=== PATIENT | female | born 1995 | race Caucasian/White ===

== ENCOUNTER → 2020-03-10 | Day surgery (SDC) | payer OTHER ==
--- NOTE | 2020-03-09 22:13 | Pre-Procedure Note/Attestation ---
Pre-Procedure Note/Attestation Complete Prior to Procedure Planned Procedure: bilateral Procedure Narrative: 1. ORIF nasal fracture 2. Septoplasty 3. Submucous resection bilateral inferior turbinates Indications for Procedure Pre-Operative Diagnosis: 1. Nasal deformity secondary to fracture 2. Nasal septal deviation 3. Hypertrophied bilateral inferior turbinates Attestation I attest that I discussed the nature of the procedure; its benefits; risks and complications; and alternatives (and the risks and benefits of such alternatives ), prior to the procedure, with the patient (or the patient's legal security representative). I attest that, if there was a reasonable possibility of needing a blood transfusion, the patient (or the patient's legal security representative) was given the [facility] standardized written summary, pursuant to the Todd Silva Blood Safety Act ([place] Health and Safety Code # 1645, as amended). I attest that I re-evaluated the patient just prior to the surgery and that there has been no change in the patient's H&P. Labs not indicated in otherwise healthy 24 yo female under 45 years old. Samuel Vega MD Mar 09, 2020 22:13
--- NOTE | 2020-03-09 22:16 | Brief Operative Note ---
Immediate Post Operative Note Operative Note Chief Complaint: nasal fareed=formityand difficulty breathing via nose Pre-op Diagnosis: 1. Nasal deformity secondary to fracture 2. Nasal septal deviation 3. Hypertrophied bilateral inferior turbinates Procedure: 1. ORIF nasal fracture 2. Septoplasty 3. Submucous resection bilateral inferior turbinates Post-op Diagnosis: same as pre-op Surgeon: Samuel Vega [employer] Supervisor: none Additional Surgeons: none Anesthesiologist: Chikis Anesthesia: general Specimen: none Complications: none Condition: stable Fluids: D5LR Estimated Blood Loss: volume - 150 cc Drains: none Packing: SinoNasal gel Implant(s) used?: No Samuel Vega MD Mar 09, 2020 22:16
--- NOTE | 2020-03-09 22:20 | Discharge Instructions ---
Discharge Instructions Discharge Instructions Follow up with: 1 week [address] surgery in Dr[address] Vega's office-pt has appt already Diet: regular Resume Normal Activity?: No Activity: light activity Pneumonia Vaccine: pt refused vaccine Influenza Vaccine (Apr to Sep): pt refused vaccine Follow Up Orders Pt has printed instructions for post op care that I reviewed and gave to both her and her Mother during her pre op visit last week. Return to Work/School on: Mar 24, 2020 Special Instructions ice to face x 48 hours For Surgical Patients Dressing Care: may change May shower: No For Congestive Heart Failure Reminder Report to your physician any weight gain of 5 pounds or more in one week. Samuel Vega MD Mar 09, 2020 22:20
--- NOTE | 2020-03-09 22:26 | History & Physical ---
History of Present Illness General Date patient seen: Mar 06, 2020 Time patient seen: 11:00 Reason for Hospitalization: outpt surgery for nose Present Illness HPI Nasal trauma with deformity and septal deviation Allergies: Coded Allergies: No Known Allergies (Unverified , 03/09/20) COVID-19 Screening Contact w/high risk pt: No Recent Travel to affected area: No Experienced COVID-19 symptoms?: No Medication History Scheduled Amoxicillin* (Amoxil*), 500 MG ORAL EVERY 8 HOURS Scheduled PRN Hydrocodone Bit/Acetaminophen 5-325* ([place] 5-325 Tablet*), 1 TAB ORAL Q6H PRN Patient History History Provided By: Patient Healthcare decision maker Resuscitation status Advanced Directive on File Review of Systems Review of Symptoms General ROS: no weight loss or fever Psychological ROS: no depression or mood changes, no memory loss Ophthalmic ROS: no visual changes or eye irritation ENT ROS: + nasal congestion and deformity, -hearing loss, dizziness Allergy and Immunology ROS: no allergic symptoms or urticaria Hematological and Lymphatic ROS: no swollen glands, unusual bleeding or bruising Endocrine ROS: no polyuria, polydipsia, weight changes, temperature intolerance Respiratory ROS: no cough, shortness of breath, or wheezing Cardiovascular ROS: no chest pain or dyspnea on exertion Gastrointestinal ROS: denies abdominal pain, bright red blood in stool. Musculoskeletal ROS: no myalgias or arthralgias Neurological ROS: no TIA or stroke symptoms Dermatological ROS: no new or changing skin lesions, rashes or pruritis Physical Exam Physical Exam General appearance: alert, cooperative, no distress, appears stated age Head: Normocephalic, without obvious abnormality, atraumatic Eyes: conjunctivae/corneas clear. PERRL, EOM's intact. Fundi benign Throat: Lips, mucosa, and tongue normal. Teeth and gums normal Neck: supple, symmetrical, trachea midline, no adenopathy, thyroid: not enlarged, symmetric, no tenderness/mass/nodules, no carotid bruit and no JVD Lungs: clear to auscultation bilaterally Heart: regular rate and rhythm, S1, S2 normal, no murmur, click, rub or gallop Abdomen: soft, non-tender. Bowel sounds normal. No masses, no organomegaly Extremities: extremities normal, atraumatic, no cyanosis or edema Pulses: 2+ and symmetric Skin: Skin color, texture, turgor normal. No rashes or lesions Neurologic: Grossly normal Nose: NASAL DEFORMITY, SEPTAL DEVIATION, HYPERTROPHIED INFERIOR TURBINATES. bp 120/80 hr 70 NONE INDICATED in healthy 24 year old female Height (Feet): 5 Height (Inches): 2 Weight (Pounds): 120 Medications Current Medications Medications (Trade) Dose Ordered Sig/Karissa Route PRN Reason Start Time Stop Time Status Last Admin Dose Admin Cefazolin Sodium 1 gm/Dextrose 55 ml @ 110 mls/hr ONCE ONCE IV 03/10/20 07:15 03/10/20 07:44 Dexamethasone Sodium Phosphate (Decadron 4mg/ml vial) 8 mg ONCE ONCE IVP 03/10/20 07:30 03/10/20 07:31 Objective Narrative Repair nasal deformity and improve nasal breathing Assessment/Plan Status: stable Assessment/Plan: 1. ORIF nasal fracture 2. Septoplasty 3. Submucous resection bilateral inferior turbinates MIPS Hospital declaration Disposition: Once the patient is stable to leave the hospital, I anticipate the patient will likely be discharged to the following environment:Home Estimated discharge date: 03/10/2020 I spent 70 minutes on this patient's case, and 25 minutes was dedicated to counseling and/or care coordination. MIPS ([employer]-based Incentive Payment System) Applicable CPT: 08653, 74454 CHECK ALL THAT ARE MET: Measure #130 The provider has documented, updated, or reviewed the patients current medication list and has documented it in the patients note. MEDICAL COMPLEXITY High complexity medical decision making (need 2/3 categories) Problem - need 4 points Acute/new problem with new plan for workup (4 points, 1 max) Acute/new problem without additional workup (3 points, 1 max) Unstable chronic problem actively being managed (2 point each, 2 max) Stable chronic problem actively being managed (1 point each, 2 max) Self-limited/transient process (constipation, muscle ache, etc) (1 point each , 2 max) Data - need 4 points Reviewed labs/imaging studies (1 points, 2 max) Independent review of imaging (EKG, xrays, etc) (2 points, 2 max) Discussed case with consult/other MD/RN (2 points, 2 max) High Risk - qualify if have one of the following: Severe exacerbation of acute problem, acute mental status change, IV narcotics , monitoring drug levels (vancomycin, INR, tacrolimus etc) Samuel Vega MD Mar 09, 2020 22:26
[2020-03-10] VITALS (13 sets, daily range): BP systolic 110–136; BP diastolic 63–82
[~2020-03-10] VITALS: Ht 160 cm; Wt 52.2 kg
[~2020-03-10] MED LIST: AMOXICILLIN500 MG ORAL; Acetaminophen (Non formulary) 100 ML IV ONE; Atropine Sulfate 0.4mg/ml inj IVP PRN; Bupivacaine w/Epi 0.5% 30ml Vial INJ ONE; Cocaine HCl 4% 4ml vial TOPIC ONE; DiphenhydrAMINE 50mg/ml Inj IVP PRN; HYDROcodone/Acetamin 5/325 tab ORAL PRN; HYDROcodone/Acetamin 7.5/325 tab ORAL PRN; HYDROmorphone 1mg/ml Carpuject SUBQ PRN; Hydromorphone 0.5mg/0.5ml inj IVP PRN; KLONOPIN1 MG ORAL; Ketorolac 30mg Inj IV PRN; LORazepam Inj 2mg/ml 1ml IV PRN; LR 1000ml 1,000 ML IVLG SCH; LR 1000ml ONE; Labetalol 5mg/ml 20ml vial IV PRN; Lidocaine 1% 10mg/ml/Epi 0.005mg/ml 30ml vial INJ ONE; Lidocaine 1% MPF 10mg/ml 5ml ONE; Lidocaine 1% Plain 30 ml INJ ONE; Meperidine 25mg/0.5ml Inj (FOR RIGORS ONLY) IV PRN; Metoclopramide 10mg/2ml Inj IVP PRN; Midazolam 2mg/2ml Inj IVP PRN; Midazolam 2mg/2ml Inj ONE; NORCO 5-325 TA1 EAC1 ORAL; NS Irrig 1000ml ONE; PAROXETINE HCL20 MG PO; Sodium Chloride 10ml vial INJ ONE; Sterile Water Irrig 1000ml IRRIG ONE; ceFAZolin sod 1 GM in D5W 55 ML IV ONE; fentaNYL 100 mcg/2 mL IV ONE; fentaNYL 100 mcg/2 mL IV PRN; oxyCODONE HCL/Acetaminophen 5/325mg ORAL PRN; propofoL 1,000mg/100ml IV ONE
--- NOTE | 2020-03-10 08:09 | Anethesia Preoperative Eval ---
Anesthesia Pre-op PMH/ROS General Date of Evaluation: Mar 10, 2020 Time of Evaluation: 09:15 Anesthesiologist: Chikis ASA Score: ASA 1 Mallampati Score Class I : Soft palate, uvula, fauces, pillars visible Class II: Soft palate, uvula, fauces visible Class III: Soft palate, base of uvula visible Class IV: Only hard plate visible Mallampati Classification: Class I Surgeon: Gary Diagnosis: Deviated Septum Surgical Procedure: Septoplasty, SMR Turbinates Family History: no anesthesia problems Allergies: Coded Allergies: No Known Allergies (Unverified , 03/09/20) Medications: see eMAR Patient NPO?: Yes Past Medical History Neurologic/Psychiatric: Reports: depression/anxiety Anesthesia Pre-op Phys. Exam Physician Exam vital Vital Signs Date Time Temp Pulse Resp B/P (MAP) Pulse Ox O2 Delivery O2 Flow Rate FiO2 03/10/20 08:24 96.8 62 18 113/73 100 Room Air Constitutional: NAD Neurologic: CN 2-12 intact Cardiovascular: RRR Respiratory: CTA Gastrointestinal: S/NT/ND Airway Exam Mallampati Score: Class I MO: full ROM: full Teeth: intact Anesthesia Pre-op A/P Risk Assessment & Plan Assessment: ASA 1 Plan: TIVA, SED Status Change Before Surgery: No Pre-Antibiotics Dru Gram Ancef IV Given Within 1 Hr of Incision: Yes Time Given: 09:36 Ramses Diop MD Mar 10, 2020 08:09
--- NOTE | 2020-03-10 10:01 | Immediate Post-Op Evaluation ---
Immediate Post-Op Evalulation Immediate Post-Op Evalulation Procedure: Septoplasty, SMR Turbinates Date of Evaluation: Mar 10, 2020 Time of Evaluation: 11:32 IV Fluids: 500 LR Blood Products: 0 Estimated Blood Loss: 150 Urinary Output: 0 Blood Pressure Systolic: 136 Blood Pressure Diastolic: 82 Pulse Rate: 112 Respiratory Rate: 16 O2 Sat by Pulse Oximetry: 100 Temperature (Fahrenheit): 99.9 Pain Score (1-10): 2 Nausea: No Vomiting: No Complications 0 Patient Status: awake, reacts, patent, none Hydration Status: adequate Dru Gram Ancef IV Given Within 1 Hr of Incision: Yes Time Given: 09:36 Ramses Diop MD Mar 10, 2020 10:01
--- NOTE | 2020-03-10 10:02 | 48 Hour Post Anesthesia Eval ---
Post Anesthesia Evaluation Procedure: Septoplasty, SMR Turbinates Date of Evaluation: Mar 10, 2020 Time of Evaluation: 13:43 Blood Pressure Systolic: 116 0: 73 Pulse Rate: 87 Respiratory Rate: 18 Temperature (Fahrenheit): 98.6 O2 Sat by Pulse Oximetry: 100 Airway: patent Nausea: No Vomiting: No Pain Intensity: 2 Hydration Status: adequate Cardiopulmonary Status: Stable Mental Status/LOC: patient returned to baseline Follow-up Care/Observations: 0 Post-Anesthesia Complications: 0 Follow-up care needed: ready to discharge Ramses Diop MD Mar 10, 2020 10:02
--- NOTE | 2020-03-11 07:44 | Operative Note - Dictated ---
DATE OF OPERATION: 03/10/2020 SURGEON: Samuel Vega MD GROUP TESTER: None. ANESTHESIOLOGIST: Ramses Diop MD. ANESTHESIA: LMA general anesthesia, 4 mL of 4% topical cocaine and 15 mL of 1% lidocaine 1:100,000 epinephrine. INDICATION FOR SURGERY: Patient has had nasal fractures in the past, septal deviation, hypertrophied inferior turbinates. PREOPERATIVE DIAGNOSES: Patient has had nasal fractures in the past, septal deviation, hypertrophied inferior turbinates. POSTOPERATIVE DIAGNOSES: Patient has had nasal fractures in the past, septal deviation, hypertrophied inferior turbinates. FINDINGS: She had a dense scar tissue to the point that it was difficult to undermine over the anterior of her nose and actually got a little tear on the upper left side that was repaired. There was extensive scar tissue in the nasal bone again making it very difficult to elevate periosteum or even separate a plane, which limited some of what could be done. The same was true of her septum. PROCEDURES: 1. Open reduction and internal fixation of nasal fracture. 2. Septoplasty. 3. Submucous resection of the right inferior turbinate. 4. Submucous resection of the left inferior turbinate. TECHNIQUE: Patient was prepped and draped in usual manner via LMA general anesthesia. Time-out was performed. All agreed as the equipment and procedures to be done. She received her antibiotic and steroid. Next, I made an incision in the inferior anterior aspect of either inferior turbinate. Passed a radiofrequency wand, setting of 6, 10 seconds after coating with saline gel x2 in either inferior turbinate and outfractured with the Boies elevator. I then proceeded to address the septal deviation, which was mainly to the left of the vomer. I was able to elevate the flap and remove the vomer. There was extensive deviation on the septum, which I cut out and then I removed most it, lifted over held straight and placed some of it back in and sewed it back into place with a 4-0 plain suture. I made between the cartilage incisions to elevate over the nasal bone with an Aufricht elevator. Please note this was very difficult. There was extensive scar tissue. I was able to develop a plane, but there was a small tear as I noted earlier on the left upper nasal area, which was closed with two 6-0 plain sutures. I did a partial medial osteotomy. I was not able to do complete one due to the scar tissue. I did not want to have any other tears in the anterior part of the nose and a full lower osteotomy with a gouge osteotome below after making a stick incision in the areas anteriorly. I then used 03:59 to complete the fracture and a 04:04 to complete the fracture as well, on either sides there was no greenstick fracture. I then put a small graft under the cartilage as a bolster graft to elevate the tip of the nose to improve nasal breathing. This graft was placed below the 04:41 in a small pocket and sewed into place with a 4-0 plain suture. I then suctioned the nose clean. I could put a butter knife in either nostril whereas in the beginning I could not put it in the left nostril at all. I could even turn it almost 360 degrees. Nose was suctioned clean. One syringe of sinonasal gel placed in either nostril, so two syringes. EBL: 150 mL. COMPLICATIONS: None. DRAINS: None. Patient awake, alert, and stable in the operating room prior to transfer to the recovery room. Again, please note that it almost seems that the fracture that she previously had innerosseated with the skin deep in her nose, which is perhaps the reason it was so difficult to elevate tissue in that area. This will be discussed with her mother today and the patient when she is fully awake when I see her in the office and off anesthetic. Samuel Vega M.D. : NICHELLE JOB#: [id number] CC:
== END | disposition home or self-care (01) ==
LOC: SUR 07:28
DX: J34.2 Deviated nasal septum (principal); J34.3 Hypertrophy of nasal turbinates; M95.0 Acquired deformity of nose; S02.2XXA Fracture of nasal bones, initial encounter for closed fracture; F32.9 Major depressive disorder, single episode, unspecified; F41.9 Anxiety disorder, unspecified
CPT/HCPCS: 21330; 30140; 30520; 81025; 94003; C9046; J0131; J0690; J1100; J2001; J2250; J2405; J2704; J3010; J7120; U0002; 94150; J2180